=== PATIENT | male | born 1965 | race Hispanic/Latino ===

== ENCOUNTER 2017-07-05 05:38 | Observation (INO) | payer OTHER ==
[~2017-07-05] VITALS: Ht 182.9 cm; Wt 108.0 kg
[2017-07-05] MEDS ORDERED: ASPIRIN 81 MG CHEW TAB PO ONE ×2 (06:00→08:00)
[2017-07-05 06:15] LABS: BASOPHILS # (AUTO) 0.1 (0.0-0.1); BASOPHILS % 0.7 % (0.0-1.0); BILIRUBIN,URINE NEGATIVE (NEGATIVE); EOSINOPHILS # (AUTO) 0.1 (0.0-0.4); EOSINOPHILS % 1.6 % (0.0-6.0); HEMATOCRIT 48.6 % (38.2-49.6); HEMOGLOBIN 16.6 g/dL (14.0-18.0); KETONES,URINE NEGATIVE (NEGATIVE); LEUKOCYTE ESTERASE ,URINE NEGATIVE (NEGATIVE); LYMPHOCYTES # (AUTO) 2.4 (1.0-3.2); LYMPHOCYTES % 35.4 % (18.0-39.1); MEAN CORPUSCULAR HEMOGLOBIN 27.5 pg (28-32); MEAN CORPUSCULAR HGB CONC 34.2 g/dL (31-35); MEAN CORPUSCULAR VOLUME 80.6 fL (81-99); MONOCYTES # (AUTO) 0.4 (0.2-0.8); MONOCYTES % 6.3 % (4.4-11.3); NEUTROPHILS # (AUTO) 3.8 (2.1-6.9); NEUTROPHILS % 55.9 % (38.7-80.0); NITRITE,URINE NEGATIVE (NEGATIVE); PLATELET COUNT 235 x10e3/uL (140-360); PROTEIN,URINE DIPSTICK NEGATIVE (NEGATIVE); RED BLOOD COUNT 6.03 x10e6/uL (4.3-5.7); RED CELL DISTRIBUTION WIDTH 13.3 % (11.7-14.4); URINE UROBILINOGEN 0.2 mg/dL (0.2 - 1)
[2017-07-05 06:22] LABS: CLARITY,URINE CLEAR (CLEAR); COLOR,URINE YELLOW (YELLOW)
[2017-07-05 06:23] LABS: INR 0.82; PROTHROMBIN TIME 11.7 seconds (11.9-14.5)
[2017-07-05 06:24] LABS: PARTIAL THROMBOPLASTIN TIME 28.6 seconds (23.8-35.5)
[2017-07-05 06:32] LABS: ALANINE AMINOTRANSFERASE 27 IU/L (0-55); ALBUMIN 4.1 g/dL (3.5-5.0); ALBUMIN/GLOBULIN RATIO 1.1 (0.8-2.0); ALKALINE PHOSPHATASE 54 IU/L (40-150); ANION GAP 10.7 mmol/L (8-16); BLOOD UREA NITROGEN 11 mg/dL (7-26); BUN/CREATININE RATIO 12 (6-25); CALCIUM 9.3 mg/dL (8.4-10.2); CARBON DIOXIDE 28 mmol/L (22-29); CHLORIDE 106 mmol/L (98-107); CREATINE KINASE 120 IU/L (30-200); CREATININE, SERUM 0.95 mg/dL (0.72-1.25); EST GLOMERULAR FILTRATION RATE > 60 ML/MIN (60-); GLUCOSE 120 mg/dL (74-118); MAGNESIUM 2.3 MG/DL (1.3-2.1); POTASSIUM 3.7 mmol/L (3.5-5.1); SODIUM 141 mmol/L (136-145)
[2017-07-05 06:35] LABS: RBC,URINE 0-5 /HPF (0-5)
--- NOTE | 2017-07-05 06:35 | Diagnostic Imaging Report ---
CHEST 2 VIEWS, Technique: CHEST 2 VIEWS Comparison: None Clinical history: \S\CP, LEFT SIDE NUMBNESS DISCUSSION: Unremarkable appearance of the heart, mediastinum, lungs and pleural spaces. No acute bony abnormality seen. IMPRESSION: No acute abnormality. Signed by: Dr Jacinda Martinez MD on 07/05/2017 6:31 AM
[2017-07-05 06:52] LABS: THYROID STIMULATING HORMONE 3.321 uIU/mL (0.350-4.940); TROPONIN I 0.028 ng/mL (0-0.300)
--- NOTE | 2017-07-05 06:53 | Diagnostic Imaging Report ---
History: Left sided arm and leg numbness Comparison studies: None Technique: Axial images were obtained from the skull base to the vertex. Coronal and sagittal reconstructions obtained from the axial data. Findings: Scalp/skull: No abnormalities. No fractures, blastic or lytic lesions. Extra-axial spaces: No masses. No fluid collections. Brain sulci: Appropriate for age. Ventricles: Normal in size and configuration. No hydrocephalus. Parenchyma: No abnormal densities. No masses, hemorrhage, acute or chronic cortical vascular insults. Sellar/suprasellar region: No abnormalities Craniocervical junction: Patent foramen magnum. No Chiari one malformation. IMPRESSION: No abnormalities . Signed by: DR Jameel Blas M.D. on 07/05/2017 6:50 AM
[2017-07-05] MEDS ORDERED: SODIUM CHLORIDE FLUSH 10 ML SYR INJ PRN (08:00)
[2017-07-05] MEDS ORDERED: LORAZEPAM INJ 2 MG/ML VIAL IV ONE (09:00)
[2017-07-05] MEDS: ASPIRIN 81 MG ENTERIC COATED PO SCH ×3 (09:48→10:03)
--- NOTE | 2017-07-05 10:38 | Diagnostic Imaging Report ---
Exam: Brain MRI without IV contrast History: Left-sided weakness, numbness x1 day Comparison studies: Head CT 07/05/2017 Technique: Sagittal axial T2 FS, axial coronal T2 FLAIR, axial DWI, axial T1 FLAIR and axial T2*GRE. Intravenous contrast: None Findings: Scalp: Normal in signal. No masses. Bone marrow: Normal in signal intensity. Brain sulci: Appropriate for age. Ventricles: Normal in size. No hydrocephalus. Extra axial spaces: No mass, no fluid collection Parenchyma: No mass, hemorrhage or acute ischemia. A few scattered T2 FLAIR hyperintense foci in the supratentorial white matter are nonspecific but most compatible with chronic small vessel ischemic changes. Suprasellar region: No abnormalities. Craniocervical junction: Patent foramen magnum. No Chiari malformation . Vessels: Normal flow-voids in the arteries and sinuses. IMPRESSION: 1. No acute abnormalities. 2. Specifically, no acute ischemia. 3. Mild supratentorial chronic microvascular ischemic changes. Signed by: Dr. Ramiro Wyatt M.D. on 07/05/2017 10:34 AM
[2017-07-05 15:40] LABS: TROPONIN I 0.021 ng/mL (0-0.300)
[2017-07-05 20:54] VITALS: BP_DIAS 73
[2017-07-05 22:47] LABS: CREATINE KINASE MB 0.9 ng/mL (0.00-5.00); TROPONIN I 0.017 ng/mL (0-0.300)
[2017-07-06 04:00] VITALS: BP 133/80
[2017-07-06 06:47] LABS: BASOPHILS % 0.5 % (0.0-1.0); EOSINOPHILS # (AUTO) 0.1 (0.0-0.4); EOSINOPHILS % 1.3 % (0.0-6.0); HEMATOCRIT 47.8 % (38.2-49.6); HEMOGLOBIN 16.2 g/dL (14.0-18.0); LYMPHOCYTES # (AUTO) 2.3 (1.0-3.2); LYMPHOCYTES % 31.4 % (18.0-39.1); MEAN CORPUSCULAR HEMOGLOBIN 27.6 pg (28-32); MEAN CORPUSCULAR HGB CONC 33.9 g/dL (31-35); MEAN CORPUSCULAR VOLUME 81.4 fL (81-99); MONOCYTES # (AUTO) 0.4 (0.2-0.8); MONOCYTES % 5.7 % (4.4-11.3); NEUTROPHILS # (AUTO) 4.5 (2.1-6.9); NEUTROPHILS % 60.2 % (38.7-80.0); PLATELET COUNT 233 x10e3/uL (140-360); RED BLOOD COUNT 5.87 x10e6/uL (4.3-5.7); RED CELL DISTRIBUTION WIDTH 13.5 % (11.7-14.4)
[2017-07-06 07:09] LABS: ANION GAP 11.3 mmol/L (8-16); BLOOD UREA NITROGEN 11 mg/dL (7-26); BUN/CREATININE RATIO 11 (6-25); CALCIUM 9.4 mg/dL (8.4-10.2); CARBON DIOXIDE 28 mmol/L (22-29); CHLORIDE 106 mmol/L (98-107); CHOL/HDL RATIO 4.8 (3.9-4.7); CHOLESTEROL 234 MD/DL (0-199); CREATININE, SERUM 0.97 mg/dL (0.72-1.25); EST GLOMERULAR FILTRATION RATE > 60 ML/MIN (60-); GLUCOSE 104 mg/dL (74-118); HDL CHOLESTEROL 49 MG/DL (40-60); LDL CHOLESTEROL 156 MG/DL (60-130); POTASSIUM 4.3 mmol/L (3.5-5.1); SODIUM 141 mmol/L (136-145); TRIGLYCERIDES 145 MG/DL (0-149)
[2017-07-06 07:30] VITALS: BP 165/82
[2017-07-06] MEDS ORDERED: AMLODIPINE BESYLATE 10 MG TAB PO SCH (09:00)
[2017-07-06] MEDS: ASPIRIN 81 MG ENTERIC COATED PO SCH (09:02)
[2017-07-06 11:39] VITALS: BP 130/73
[2017-07-06] MEDS ORDERED: LORAZEPAM INJ 2 MG/ML VIAL IV PRN (12:30)
[2017-07-06 15:35] VITALS: BP 145/76
--- NOTE | 2017-07-06 16:41 | Diagnostic Imaging Report ---
EXAMINATION: MRI of the cervical spine without contrast HISTORY: Neck pain, left-sided numbness COMPARISON: None available TECHNIQUE: Sagittal T1, T2, STIR; axial T2, gradient echo. FINDINGS: Curvature: Normal lordosis. Vertebrae: No evidence of neoplasm, infection, or fracture. Foramen magnum: No mass, Chiari malformation, or basilar invagination. Spinal Cord: Normal size and signal intensity. Soft Tissues: Partially visualized large approximately 6 x 5 cm mass in the left lobe of the thyroid gland with mild deviation of the trachea to the right, no obstruction of the airway.. Degenerative changes: C1-C2 and C2-C3: Unremarkable. C3-C4 and C4-C5: Small disc osteophyte without canal or foraminal stenoses C5-C6: Small disc osteophyte, mild uncovertebral and facet arthrosis. Mild foramina narrowing on the right and moderate on the left. Minimal compression upon the exiting left C6 nerve root cannot totally be excluded. C6-C7: Minimal symmetric disc bulge without canal or foraminal stenoses C7-T1: Unremarkable. IMPRESSION: Moderate degenerative foraminal stenosis on the left and mild on the right at C5-C6. Otherwise no significant degenerative changes or stenosis. Signed by: Dr. Lindsay Chacon M.D. on 07/06/2017 4:37 PM
[2017-07-06] MEDS ORDERED: PLAVIX75 MG PO (17:26)
[2017-07-06] MEDS ORDERED: SIMVASTATIN20 MG PO (17:26)
[2017-07-06] MEDS ORDERED: NORVASC10 MG PO (17:26)
== END 2017-07-06 18:40 | disposition home or self-care (01) ==
LOC: ER 05:38 → IMCU 19:29
PROVIDERS: ADMIT Internal Medicine; ATTEND Internal Medicine
DX: G45.9 Transient cerebral ischemic attack, unspecified (principal)
CPT/HCPCS: 36415 ×2; 70450; 70551; 71020; 72141; 80048; 80053; 80061; 81001; 82550; 82553; 83735; 83880; 84443; 84484; 85025 ×2; 85610; 85730; 87086; 93005; 93880; 97139; 97161; 99284; G0378 ×2; G8978; G8979; G8980; J2060 ×2